=== PATIENT | female | born 1970 | race Caucasian/White ===

== ENCOUNTER 2024-04-05 16:11 | Observation (INO) | payer OTHER ==
[2024-04-05] MEDS ORDERED: MECLIZINE HCL 25 MG TABLET (FP) ONE (16:56)
[2024-04-05] MEDS: MECLIZINE HCL 25 MG TABLET (FP) PO ONE (17:08)
[2024-04-05] MEDS: SODIUM CHLORIDE 0.9% 1000 ML INFUS.BAG IV ONE (17:08)
[2024-04-05 17:21] LABS: HEMATOCRIT 41.2 % (32.4-45.2); HEMOGLOBIN 13.9 G/dL (10.7-15.3); MCH 30.8 pg (25.7-33.7); MCHC 33.7 g/dl (32.0-36.0); MEAN CELL VOLUME 91.3 fl (80-96); MEAN PLT VOLUME 8.8 fl (7.5-11.1); PLATELET COUNT 223.6 10^3/uL (134-434); RBC 4.51 10^6/uL (3.60-5.2); WHITE BLOOD COUNT 6.9 10^3/uL (4.0-10.8)
[2024-04-05 17:25] LABS: INR 1.09 (0.83-1.09); PROTHROMBIN TIME (PATIENT) 12.4 SEC (9.7-13.0)
[2024-04-05 17:35] LABS: ALBUMIN 4.3 g/dl (3.4-5.0); ALK PHOS 83 U/L (45-117); ANION GAP 9 mmol/L (4-13); BILIRUBIN,TOTAL 0.7 mg/dl (0.2-1); CALCIUM 9.6 mg/dl (8.5-10.1); CHLORIDE 105 mmol/L (98-107); CO2 26 mmol/L (21-32); CREATININE 0.9 mg/dl (0.6-1.3); GLUCOSE,RANDOM 98 mg/dl (74-106); SGOT/AST 20 U/L (15-37); SGPT/ALT 15 U/L (7-52); SODIUM 140 mmol/L (136-145); TOT PROT 6.6 g/dl (6.4-8.2)
[2024-04-05] MEDS ORDERED: SODIUM CHLORIDE 1,000 ML IV SCH (21:45)
[2024-04-05 22:04] VITALS: BMI 26.4
[2024-04-06 01:33] VITALS: TEMP 98
[2024-04-06] MEDS ORDERED: MECLIZINE HCL 25 MG TABLET (FP) PO PRN (07:35)
[2024-04-06 08:06] LABS: HEMATOCRIT 41.2 % (32.4-45.2); HEMOGLOBIN 13.7 G/dL (10.7-15.3); MCH 30.4 pg (25.7-33.7); MCHC 33.2 g/dl (32.0-36.0); MEAN CELL VOLUME 91.5 fl (80-96); MEAN PLT VOLUME 9.3 fl (7.5-11.1); PLATELET COUNT 223.4 10^3/uL (134-434); RDW 13.5 % (11.6-15.6); WHITE BLOOD COUNT 7.6 10^3/uL (4.0-10.8)
[2024-04-06 08:52] VITALS: BP 112/59; PULSE 65; RESP 189
[2024-04-06 09:18] LABS: CALCIUM 9.2 mg/dl (8.5-10.1); CREATININE 0.9 mg/dl (0.6-1.3); POTASSIUM 4.4 mmol/L (3.5-5.1)
[2024-04-06 09:44] LABS: PLATELET ESTIMATE ADEQUATE
[2024-04-06] MEDS: ASPIRIN COATED 81 MG TABLET.EC PO SCH (10:08)
== END 2024-04-06 11:26 | disposition home or self-care (01) ==
LOC: FER 16:11 → FM/S 20:02
PROVIDERS: ADMIT Internal Medicine; ATTEND Internal Medicine
PROC: 3E0337Z Introduction of Electrolytic and Water Balance Substance into Peripheral Vein, Percutaneous Approach (ICD-10-PCS; principal; 2024-04-05)
DX: G45.9 Transient cerebral ischemic attack, unspecified (principal); R42 Dizziness and giddiness; R20.0 Anesthesia of skin; R51.9 Headache, unspecified; Z90.79 Acquired absence of other genital organ(s); Z88.8 Allergy status to other drugs, medicaments and biological substances
CPT/HCPCS: 36415; 70450-TC; 70496-TC; 70498-TC; 80048; 80053; 80061; 81003; 83036; 84443; 84484; 85027; 85610; 87086; 93005; 99285-25; G0378